=== PATIENT | female | born 1965 | race Caucasian/White ===

== ENCOUNTER 2022-01-10 19:41 | Emergency (ER) | payer MEDICARE, MEDICAID ==
[~2022-01-10] VITALS: Ht 152.4 cm; Wt 71.9 kg
[2022-01-10 21:23] VITALS: BP 118/70
[2022-01-10 21:30] VITALS: BP 103/70
[2022-01-10 21:45] VITALS: BP 100/68
[2022-01-10] MEDS ORDERED: CORTISPORIN OTI10 M2 AU (22:01)
[2022-01-10 22:11] VITALS: BP 100/68
== END 2022-01-10 22:21 | disposition home or self-care (01) ==
LOC: ED 19:41
DX: H60.92 Unspecified otitis externa, left ear (principal); G40.909 Epilepsy, unspecified, not intractable, without status epilepticus; Z86.73 Personal history of transient ischemic attack (TIA), and cerebral infarction without residual deficits